=== PATIENT | female | born 1985 | race Caucasian/White ===

== ENCOUNTER 2023-12-02 08:45 | Outpatient (CLI) | payer BC | END 2023-12-02 08:46 | disposition home or self-care (01) | LOC: CSHULT 08:45 | PROVIDERS: ATTEND Pediatrics Pediatric Gastroenterology | DX: R10.10 Upper abdominal pain, unspecified (principal); R11.2 Nausea with vomiting, unspecified; K76.9 Liver disease, unspecified | CPT/HCPCS: 76700 ==